=== PATIENT | male | born 1955 | race Caucasian/White ===

== ENCOUNTER 2023-07-18 07:27 | Observation (INO) | payer BC ==
[2023-07-12 11:20] LABS: BASOPHILS # (AUTO) 0.1 (0.0-0.1); BASOPHILS % 0.6 % (0.0-1.0); EOSINOPHILS # (AUTO) 0.1 (0.0-0.4); HEMATOCRIT 38.5 % (38.2-49.6); HEMOGLOBIN 13.6 g/dL (14.0-18.0); LYMPHOCYTES # (AUTO) 1.5 (1.0-3.2); LYMPHOCYTES % 16.2 % (18.0-39.1); MEAN CORPUSCULAR HGB CONC 35.3 g/dL (31-35); MEAN CORPUSCULAR VOLUME 90.6 fL (81-99); MONOCYTES # (AUTO) 0.7 (0.2-0.8); MONOCYTES % 7.8 % (4.4-11.3); NEUTROPHILS # (AUTO) 6.8 (2.1-6.9); NEUTROPHILS % 73.9 % (38.7-80.0); PLATELET COUNT 205 x10e3/uL (140-360); RED BLOOD COUNT 4.25 x10e6/uL (4.3-5.7); RED CELL DISTRIBUTION WIDTH 12.4 % (11.7-14.4); WHITE BLOOD COUNT 9.26 x10e3/uL (4.8-10.8)
[2023-07-12 11:47] LABS: INR 0.91; PROTHROMBIN TIME 12.8 seconds (11.9-14.5)
[2023-07-12 11:48] LABS: PARTIAL THROMBOPLASTIN TIME 28.6 seconds (23.8-35.5)
[2023-07-12 11:57] LABS: ANION GAP 13.4 mmol/L (8-16); CALCIUM 9.2 mg/dL (8.4-10.2); CREATININE, SERUM 1.03 mg/dL (0.72-1.25); POTASSIUM 4.4 mmol/L (3.5-5.1)
[~2023-07-18] VITALS: Ht 190.5 cm; Wt 126.6 kg
[~2023-07-18 07:27] MED LIST: CELEBREX100 MG PO; PREDNISONE5 MG PO; SERTRALINE HCL50 MG PO; THROMBIN FOR SOLN 5,000 UNIT VIAL ONE; Vancomycin IV 1 GM VIAL ONE
[2023-07-18] MEDS ORDERED: LACTATED RINGER'S 1,000 ML ONE (08:46)
[2023-07-18] MEDS ORDERED: CEFAZOLIN SODIUM 2 GM ONE (08:46)
[2023-07-18] MEDS ORDERED: CEPACOL SORE THROAT LOZENGES PO PRN (12:00)
[2023-07-18] MEDS ORDERED: CARISOPRODOL 350 MG TAB PO PRN (12:00)
[2023-07-18] MEDS ORDERED: PREDNISONE 5 MG TAB PO SCH (12:00)
[2023-07-18] MEDS ORDERED: PROMETHAZINE HCL (IM) 25 MG/ML VIAL IM PRN (12:00)
[2023-07-18] MEDS ORDERED: ACETAMINOPHEN 325 MG TAB PO PRN (12:00)
[2023-07-18] MEDS ORDERED: MORPHINE SULFATE 5 MG/ML VIAL IM PRN (12:00)
[2023-07-18] MEDS ORDERED: MAGNESIUM/ALUMINUM/SIMETHICONE 30 ML UDC PO PRN (12:00)
[2023-07-18] MEDS ORDERED: ONDANSETRON HCL INJ 2MG/ML 2ML 2 MG/ML VIAL IV PRN (12:00)
[2023-07-18] MEDS ORDERED: HYDROMORPHONE 2MG/ML 2 MG/ML ML IV PRN (12:00)
[2023-07-18] MEDS ORDERED: HYDROCODON-ACE1 EA12 PO (12:02)
[2023-07-18] MEDS ORDERED: FENTANYL CITRATE/PF 100MCG/2 ML INJ ONE ×2 (12:16→13:05)
[2023-07-18] MEDS ORDERED: PROPOFOL IV EMULSION 10 MG/ML 20 ML VIAL ONE (12:27)
[2023-07-18] MEDS ORDERED: DEXAMETHASONE SOD PHOS INJ 4 MG/ML SDV ONE (12:27)
[2023-07-18] MEDS ORDERED: KETAMINE 50MG/5ML SYR ONE (12:27)
[2023-07-18] MEDS ORDERED: SUGAMMADEX SODIUM 200 MG/2 ML VIAL IV ONE (12:27)
[2023-07-18] MEDS ORDERED: ONDANSETRON HCL INJ 2MG/ML 2ML 2 MG/ML VIAL ONE (12:27)
[2023-07-18] MEDS ORDERED: LIDOCAINE HCL 2% LOCAL INJ 5 ML SDV VIAL INJ ONE (12:27)
[2023-07-18] MEDS ORDERED: ACETAMINOPHEN 1000 MG/100 ML IV ONE (12:27)
[2023-07-18] MEDS ORDERED: SEVOFLURANE INHAL SOLN 250 ML PEN BTL ONE (12:27)
[2023-07-18] MEDS ORDERED: ROCURONIUM BROMIDE 10 MG/ML 5ML VIAL IV ONE (12:27)
[2023-07-18] MEDS ORDERED: DEXMEDETOMIDINE HCL 200 MCG/2 ML VIAL ONE (12:27)
[2023-07-18] MEDS: OXYCODONE/ACETAMINOPHEN 5-325 1 EACH TABLET PO PRN ×3 (12:40→21:51)
[2023-07-18 13:01] VITALS: BP 145/85; PULSE 67; RESP 19; TEMP 97.7; O2SAT 95
[2023-07-18] MEDS ORDERED: MIDAZOLAM HCL 2 MG/2 ML VIAL ONE (13:05)
[2023-07-18] MEDS: LACTATED RINGER'S 1,000 ML IV SCH ×2 (13:19→21:50)
[2023-07-18 14:37] VITALS: BP 145/85; PULSE 67; RESP 19; TEMP 97.7; O2SAT 95
[2023-07-18 15:51] VITALS: BP 130/87; PULSE 64; RESP 21; TEMP 97.4; O2SAT 96
[2023-07-18 20:25] VITALS: BP 136/80; PULSE 67; RESP 19; TEMP 97.9; O2SAT 97
[2023-07-18] MEDS: ZOLPIDEM TARTRATE 5 MG TAB PO PRN ×2 (21:49→21:51)
[2023-07-19 00:43] VITALS: BP 135/78; PULSE 65; RESP 17; TEMP 97.8; O2SAT 97
[2023-07-19 04:45] VITALS: BP 142/78; PULSE 75; RESP 20; TEMP 97.7; O2SAT 97
[2023-07-19] MEDS: LACTATED RINGER'S 1,000 ML IV SCH (06:10)
[2023-07-19] MEDS ORDERED: SERTRALINE HCL 50 MG TAB PO SCH (09:00)
[2023-07-19] MEDS ORDERED: CELECOXIB 200 MG CAP PO SCH (09:00)
[2023-07-19 09:04] VITALS: BP 155/93; PULSE 68; RESP 19; TEMP 97.7; O2SAT 97
[2023-07-19] MEDS: OXYCODONE/ACETAMINOPHEN 5-325 1 EACH TABLET PO PRN (09:17)
== END 2023-07-19 12:00 | disposition home or self-care (01) ==
LOC: OR 07:27 → PACU V 11:57 → MED/SURG2 12:58
PROVIDERS: ADMIT Neurological Surgery; ATTEND Neurological Surgery
DX: M50.01 Cervical disc disorder with myelopathy, high cervical region (principal); G47.33 Obstructive sleep apnea (adult) (pediatric); J45.909 Unspecified asthma, uncomplicated; E03.9 Hypothyroidism, unspecified; Z71.3 Dietary counseling and surveillance; Z71.82 Exercise counseling; I45.10 Unspecified right bundle-branch block; M06.9 Rheumatoid arthritis, unspecified; G89.29 Other chronic pain; F32.A Depression, unspecified; Z79.899 Other long term (current) drug therapy; Z68.39 Body mass index [BMI] 39.0-39.9, adult
CPT/HCPCS: 20931; 22551; 22845; 36415; 71046; 72040; 76000; 80048; 85025; 85610; 85730; 86850; 86900; 88304; 88311; 93005; C1713 ×2; G0378 ×2; J0131; J0690 ×2; J1100; J2001; J2250; J2405; J2704; J3010; J3370; J7121